=== PATIENT | male | born 1975 | race Caucasian/White ===

== ENCOUNTER 2016-09-24 21:27 | Observation (INO) | payer OTHER ==
[~2016-09-24] VITALS: Ht 170.2 cm; Wt 58.8 kg
[~2016-09-24 21:27] MED LIST: DICL75 PO
[2016-09-24 21:30] VITALS: BP 98/68; PULSE 84; RESP 16; TEMP 99.7; O2SAT 99
[2016-09-24] MEDS ORDERED: TRAM50TA PO (21:42)
--- NOTE | 2016-09-24 21:46 | PD ---
HPI Chief Complaint: Skin Problem Time Seen by Provider: 21:46 Travel History International Travel<30 days: No Contact w/Intl Traveler<30days: No Traveled to known affect area: No History of Present Illness HPI 41-year-old male presents to the ED for evaluation of 2 day history of left ankle pain and swelling. Gradual onset. Patient endorses increased pain with weightbearing, especially after periods of rest. He denies numbness, tingling, weakness, limitations to range of motion of the ankle. He denies known trauma, previous injury, fever or chills. 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 No treatment attempted at home. Patient states that he takes tramadol daily for chronic right shoulder pain. Denies chronic health problems, requests nonnarcotic pain medications. Endorses allergy to sulfa. PFSH Past Medical History Medical History: Denies Significant Hx Hx Anticoagulant Therapy: No Cardiovascular Problems: No Chemotherapy: No Cerebrovascular Accident: No Diabetes: No Diminished Hearing: No Respiratory: No Immunizations Current: Yes Tetanus Vaccination: > 5 Years Influenza Vaccination: No Past Surgical History Surgical History: No Previous Surgery Hysterectomy: No Social History Alcohol Use: No (6 pack/week) Tobacco Use: No (VAPOR CIGS ONLY) Substance Use: Yes (marijuana) Allergies-Medications (Allergen,Severity, Reaction): Coded Allergies: Sulfa (Verified Allergy, Severe, RASH, 09/24/16) Uncoded Allergies: NO NARCOTIC PER REQUEST (Allergy, Severe, PT IN [facility], 01/29/08) Reported Meds & Prescriptions Reported Meds & Active Scripts Active Reported Tramadol (Tramadol HCl) 50 Mg Tab 50 Mg PO Q8H PRN Review of Systems Except as stated in HPI: all other systems reviewed are Neg Physical Exam Narrative GENERAL: Well-nourished, well-developed white male in no acute distress. SKIN: Focused skin assessment warm/dry. There is warm, tender erythema of bilateral lower legs, left greater than right. No lymphatic streaking or popliteal LAD bilaterally. HEAD: Normocephalic. EYES: No scleral icterus. No injection or drainage. NECK: Supple, trachea midline. No JVD or lymphadenopathy. CARDIOVASCULAR: Regular rate and rhythm without murmurs, gallops, or rubs. RESPIRATORY: Breath sounds equal bilaterally. No accessory muscle use. GASTROINTESTINAL: Abdomen soft, non-tender, nondistended. MUSCULOSKELETAL: No cyanosis, or edema. 2+ DP pulse bilaterally. Patient retains full, active, painless range of motion of the ankles and toes bilaterally. Mild pitting edema of the medial malleolus of the left ankle. Homans sign negative bilaterally. Sensation intact to light touch distally. Cap refill less than 2 seconds. BACK: Nontender without obvious deformity. No CVA tenderness. Data Data Last Documented VS Vital Signs Date Time Temp Pulse Resp B/P Pulse Ox O2 Delivery O2 Flow Rate FiO2 09/24/16 21:30 99.7 84 16 98/68 99 Orders Ankle, Complete ([id number]) (09/24/16 21:54) Ankle, Complete ([id number]) (09/24/16 21:54) Ice/Cold Pack (09/24/16 21:54) ^ Insert Iv (09/24/16 21:54) Complete Blood Count With Diff (09/24/16 21:54) Comprehensive Metabolic Panel (09/24/16 21:54) C-Reactive Protein (Crp) (09/24/16 21:54) Westergren Sedimentation Rate (09/24/16 21:54) MDM Medical Decision Making Medical Screen Exam Complete: Yes Emergency Medical Condition: Yes Differential Diagnosis Rheumatoid arthritis versus osteoarthritis versus cellulitis versus other Narrative Course 41-year-old male presents to the ED for evaluation of 2 day history of left ankle pain and swelling. Gradual onset. Patient endorses increased pain with weightbearing, especially after periods of rest. He denies numbness, tingling, weakness, limitations to range of motion of the ankle. He denies known trauma, previous injury, fever or chills. 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 Patient denies IV drug use. Vitals reviewed. Patient has a low-grade fever on presentation. Physical exam reveals a nontoxic -appearing white male in no acute distress. There is warm, tender erythema of bilateral lower legs, left greater than right. There is no lymphatic streaking or popliteal LAD bilaterally. 2+ DP pulses bilaterally. Patient retains full, active, painless range of motion of the ankles and toes bilaterally. There is mild pitting edema in the medial malleolus of the left ankle. Homans sign negative bilaterally. Neurovascularly intact. X-rays of bilateral ankles, IV insertion, CBC, CMP, CRP, sedimentation rate ordered. Patient will be transferred referred to the medical pod. Please see Dr. Loera notes for disposition. Hue Hernandez Sep 24, 2016 21:46
--- NOTE | 2016-09-24 22:36 | RADHPO ---
EXAM DATE/TIME: 09/24/2016 22:16 [facility] COMPARISON: No previous studies available for comparison. INDICATIONS : Left medial ankle pain, redness, and swelling. No known injury. MEDICAL HISTORY : None. SURGICAL HISTORY : None. ENCOUNTER: Initial ACUITY: 2 days PAIN SCORE: 5/10 LOCATION: Left medial ankle FINDINGS: Three view exam was performed of the left ankle. The bony structures are in normal alignment. No ev idence of fracture, dislocation, or soft tissue swelling. The ankle mortise is intact. No radiopaqu e foreign bodies are seen. Bony mineralization is normal. CONCLUSION: No acute disease. Adam Leo MD on September 24, 2016 at 22:34 Board Certified Radiologist. This report was verified electronically.
[2016-09-24 22:37] LABS: AUTOMATED NEUTROPHIL # 2.1 TH/MM3 (1.8-7.7); BASOPHIL % 0.6 % (0.0-2.0); EOSINOPHIL % 0.4 % (0.0-4.0); HEMATOCRIT 33.6 % (39.0-51.0); HEMO FLAGS DIFF FINAL; LYMPH % 18.2 % (9.0-44.0); LYMPHOCYTE # 0.6 TH/MM3 (1.0-4.8); MEAN CELL VOLUME 79.7 FL (80.0-100.0); MEAN CORPUSCULAR HEMOGLOBIN 26.3 PG (27.0-34.0); MONO % 18.1 % (0.0-8.0); NEUT % 62.7 % (16.0-70.0); PLATELET COUNT 191 TH/MM3 (150-450); RED BLOOD COUNT 4.21 MIL/MM3 (4.50-5.90); RED CELL DISTRIBUTION WIDTH 13.3 % (11.6-17.2); WHITE BLOOD COUNT 3.3 TH/MM3 (4.0-11.0)
--- NOTE | 2016-09-24 22:37 | RADHPO ---
EXAM DATE/TIME: 09/24/2016 22:18 [facility] COMPARISON: No previous studies available for comparison. INDICATIONS : Right medial ankle redness. No known injury. MEDICAL HISTORY : None. SURGICAL HISTORY : None. ENCOUNTER: Initial ACUITY: 1 day PAIN SCORE: 3/10 LOCATION: Right medial ankle FINDINGS: Three view exam was performed of the right ankle. The bony structures are in normal alignment. No e vidence of fracture, dislocation, or soft tissue swelling. The ankle mortise is intact. No radiopaq ue foreign bodies are seen. Bony mineralization is normal. CONCLUSION: No acute disease. Adam Leo MD on September 24, 2016 at 22:35 Board Certified Radiologist. This report was verified electronically.
[2016-09-24 22:53] LABS: CHLORIDE 104 MEQ/L (98-107); POTASSIUM 3.4 MEQ/L (3.5-5.1); SODIUM (NA) 140 MEQ/L (136-145)
--- NOTE | 2016-09-24 22:53 | PD ---
Physical Exam Date Seen by Provider: Sep 24, 2016 Time Seen by Provider: 22:52 Narrative accepted in transfer of care GENERAL: SKIN: Warm and dry. HEAD: Normocephalic. EYES: No scleral icterus. No injection or drainage. NECK: Supple, trachea midline. No JVD or lymphadenopathy. CARDIOVASCULAR: Regular rate and rhythm without murmurs, gallops, or rubs. RESPIRATORY: Breath sounds equal bilaterally. No accessory muscle use. GASTROINTESTINAL: Abdomen soft, non-tender, nondistended. MUSCULOSKELETAL: No cyanosis, or edema. Bilateral lower extremities attention medial lower leg overlying area of medial malleolus left greater than right with area of erythema increased warmth tenderness to palpation nonfluctuant nontender rated able to demonstrate full range of motion of the ankles without eliciting pain dorsalis pedis pulse bilaterally 2+ to palpation capillary refill brisk and less than 2 seconds per digit no deformity no pallor no coolness no ascending erythema no groin lymphadenopathy to palpation. BACK: Nontender without obvious deformity. No CVA tenderness. Data Data Last Documented VS Vital Signs Date Time Temp Pulse Resp B/P Pulse Ox O2 Delivery O2 Flow Rate FiO2 09/25/16 00:30 64 16 115/75 99 Room Air 09/25/16 00:00 98.6 Orders Ankle, Complete (Xit2qsh) (09/24/16 21:54) Ankle, Complete ([id number]) (09/24/16 21:54) Ice/Cold Pack (09/24/16 21:54) ^ Insert Iv (09/24/16 21:54) Complete Blood Count With Diff (09/24/16 21:54) Comprehensive Metabolic Panel (09/24/16 21:54) C-Reactive Protein (Crp) (09/24/16 21:54) Westergren Sedimentation Rate (09/24/16 21:54) Ketorolac Inj (Toradol Inj) (09/24/16 23:30) Lactic Acid (09/25/16 00:12) Blood Culture (09/25/16 00:12) Drug Screen, Random Urine (09/25/16 00:12) Place In Observation (09/25/16 ) Vital Signs (Adult) Q4H (09/25/16 00:36) Activity Oob Ad Sophie (09/25/16 00:36) Diet Regular Basic (09/25/16 Breakfast) Sodium Chlor 0.9% 1000 Ml Inj (Ns 1000 M (09/25/16 00:36) Sodium Chloride 0.9% Flush (Ns Flush) (09/25/16 00:45) Sodium Chloride 0.9% Flush (Ns Flush) (09/25/16 09:00) Ondansetron Inj (Zofran Inj) (09/25/16 00:45) Bisacodyl Supp (Dulcolax Supp) (09/25/16 00:45) Comprehensive Metabolic Panel (09/26/16 06:00) Complete Blood Count With Diff (09/26/16 06:00) Acetaminophen (Tylenol) (09/25/16 00:45) Acetamin-Hydrocod 325-5 Mg (Julian 5-325 (09/25/16 00:45) Morphine Inj (Morphine Inj) (09/25/16 00:45) Clindamycin Inj (Cleocin Inj) (09/25/16 09:00) Admit Order (Ed Use Only) (09/25/16 ) ^ Saline Lock (09/25/16 00:41) Resp Oxygen Brendon C Titrat 1-4 L (09/25/16 ) ^ Notify Dr: Other (09/25/16 00:41) Sodium Chloride 0.9% Flush (Ns Flush) (09/25/16 09:00) Sodium Chloride 0.9% Flush (Ns Flush) (09/25/16 00:45) Clindamycin Inj (Cleocin Inj) (09/25/16 00:45) Labs Laboratory Tests Test 09/24/16 09/25/16 09/25/16 22:07 00:25 00:33 White Blood Count 3.3 TH/MM3 Red Blood Count 4.21 MIL/MM3 Hemoglobin 11.1 GM/DL Hematocrit 33.6 % Mean Corpuscular Volume 79.7 FL Mean Corpuscular Hemoglobin 26.3 PG Mean Corpuscular Hemoglobin 33.0 % Concent Red Cell Distribution Width 13.3 % Platelet Count 191 TH/MM3 Mean Platelet Volume 7.8 FL Neutrophils (%) (Auto) 62.7 % Lymphocytes (%) (Auto) 18.2 % Monocytes (%) (Auto) 18.1 % Eosinophils (%) (Auto) 0.4 % Basophils (%) (Auto) 0.6 % Neutrophils # (Auto) 2.1 TH/MM3 Lymphocytes # (Auto) 0.6 TH/MM3 Monocytes # (Auto) 0.6 TH/MM3 Eosinophils # (Auto) 0.0 TH/MM3 Basophils # (Auto) 0.0 TH/MM3 CBC Comment DIFF FINAL Differential Comment Erythrocyte Sedimentation Rate 1 mm/hr Sodium Level 140 MEQ/L Potassium Level 3.4 MEQ/L Chloride Level 104 MEQ/L Carbon Dioxide Level 28.2 MEQ/L Anion Gap 8 MEQ/L Blood Urea Nitrogen 12 MG/DL Creatinine 1.00 MG/DL Estimat Glomerular Filtration 82 ML/MIN Rate Random Glucose 112 MG/DL Calcium Level 8.4 MG/DL Total Bilirubin 0.8 MG/DL Aspartate Amino Transf 12 U/L (AST/SGOT) Alanine Aminotransferase 14 U/L (ALT/SGPT) Alkaline Phosphatase 100 U/L C-Reactive Protein 6.80 MG/DL Total Protein 6.1 GM/DL Albumin 3.3 GM/DL Urine Opiates Screen NEG Urine Barbiturates Screen NEG Urine Amphetamines Screen NEG Urine Benzodiazepines Screen NEG Urine Cocaine Screen NEG Urine Cannabinoids Screen NEG Lactic Acid Level 0.6 mmol/L MDM Medical Record Reviewed: Yes Supervised Visit with CHARITY: Yes (I, Dr. Salas, have reviewed the advance practice practitioner's documentation and am in agreement, met with the patient face to face, made the diagnosis, and the medical decision making was done by me. My assessment and findings: Cellulitis) Interpretation(s) C-RP: 6.80, elevated sed rate: 1, not elevated Last Impressions Ankle X-Ray 09/24/162153 Signed Impressions: Service Date/Time: Saturday, September 24, 2016 22:18 - CONCLUSION: No acute disease. Adam Leo MD Ankle X-Ray 09/24/162153 Signed Impressions: Service Date/Time: Saturday, September 24, 2016 22:16 - CONCLUSION: No acute disease. Adam Leo MD CBC & BMP Diagram 09/24/16 22:07 Vital Signs Date Time Temp Pulse Resp B/P Pulse Ox O2 Delivery O2 Flow Rate FiO2 09/25/16 00:30 64 16 115/75 99 Room Air 09/25/16 00:00 98.6 09/24/16 23:05 65 16 09/24/16 23:00 65 16 109/75 99 Room Air 09/24/16 21:30 99.7 84 16 98/68 99 Differential Diagnosis Cellulitis, migratory arthritis, gouty arthritis, rheumatoid arthritis, contact dermatitis; no reproducible joint pain with range of motion unlikely septic arthritis Narrative Course IV access obtained specimens collected and sent for resulting Imaging studies revealed no acute abnormality Patient remains hypotensive but states that he is chronically normal low normal to hypotensive with his blood pressures Patient administered IV antibiotic; uric acid lactic acid pending blood cultures collected and antibiotics administered case discussed with information systems planner EDDY JIMENEZ for obs admission Physician Communication Physician Communication discussed with EDDY JIMENEZ Diagnosis Primary Impression: Cellulitis of left ankle Admitting Information Admitting Physician Requests: Observation Eleanor Salas MD Sep 24, 2016 22:53
[2016-09-24 22:57] LABS: ANION GAP 8 MEQ/L (5-15); BICARBONATE 28.2 MEQ/L (21.0-32.0); BLOOD UREA NITROGEN 12 MG/DL (7-18)
[2016-09-24 23:00] VITALS: BP 109/75; PULSE 65; RESP 16; O2SAT 99
[2016-09-24 23:00] LABS: ALT (GPT) 14 U/L (12-78); AST (GOT) 12 U/L (15-37); GLOMERULAR FILTRATION RATE 82 ML/MIN (>89)
[2016-09-24 23:01] LABS: TOTAL BILIRUBIN ADULT 0.8 MG/DL (0.2-1.0)
[2016-09-24 23:03] LABS: ALKALINE PHOSPHATASE 100 U/L (45-117)
[2016-09-24] MEDS ORDERED: KETOROLAC TROMETHAMINE 30 MG/ML (IVP) VIAL IV PUSH ONE (23:30)
[2016-09-25] VITALS (12 sets, daily range): BP systolic 95–121; BP diastolic 74–88; PULSE 58–96; RESP 16–20; TEMP 95.8–98.8; O2SAT 96–100
[2016-09-25] MEDS ORDERED: CLINDAMYCIN INJ 900 MG in SODIUM CHLORIDE 0.9% INJ 100 ML IV ONE (00:45)
[2016-09-25] MEDS ORDERED: SODIUM CHLORIDE 0.9% FLUSH 10 ML FLUSH IV FLUSH PRN (00:45)
[2016-09-25] MEDS ORDERED: MORPHINE SULFATE 4 MG/ML INJ IV PRN (00:45)
[2016-09-25] MEDS ORDERED: ONDANSETRON HCL 4 MG/2 ML VIAL IVP PRN (00:45)
[2016-09-25] MEDS ORDERED: ACETAMINOPHEN 325 MG TAB PO PRN (00:45)
[2016-09-25] MEDS ORDERED: BISACODYL 10 MG SUPP RECTAL PRN (00:45)
[2016-09-25] MEDS ORDERED: SODIUM CHLORIDE 0.9% FLUSH 10 ML FLUSH IVF PRN (00:45)
[2016-09-25 01:00] LABS: AMPHETAMINE, URINE NEG (NEG); BARBITURATES, URINE NEG (NEG)
[2016-09-25 01:06] LABS: COCAINE, URINE NEG (NEG)
[2016-09-25] MEDS: SODIUM CHLOR 0.9% 1000 ML INJ 1,000 ML IV SCH ×3 (01:16→22:06)
[2016-09-25] MEDS ORDERED: DOXYCYCLINE HYCLATE 100 MG CAP PO ONE (02:00)
[2016-09-25] MEDS: SODIUM CHLORIDE 0.9% FLUSH 10 ML FLUSH IV FLUSH SCH ×2 (07:57→21:00)
[2016-09-25] MEDS ORDERED: SODIUM CHLORIDE 0.9% FLUSH 10 ML FLUSH IV FLUSH SCH (09:00)
[2016-09-25] MEDS: CLINDAMYCIN INJ 900 MG in SODIUM CHLORIDE 0.9% INJ 100 ML IV SCH ×2 (09:04→17:48)
[2016-09-25] MEDS: ACETAMINOPHEN/HYDROcodone 325 MG/5 MG TAB PO PRN ×4 (09:05→22:04)
--- NOTE | 2016-09-25 13:05 | HHI.HP ---
[facility] [place] [facility] Primary [facility] Physician Abigail Gutiérrez MD Admission Diagnosis L ankle cellulitis Diagnoses: (1) Cellulitis of left ankle Travel History International Travel<30 Days: No Contact w/Intl Traveler <30 Da: No Traveled to Known Affected Are: No History of Present Illness 41-year-old male with past medical history of psoriasis, previous opiate and alcohol abuse quit in 2006 who presents to the ER with left ankle pain swelling and redness beginning 4 days ago. 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 4 days ago he noticed that they were red splotches on his left ankle. The patient noted that he has had this issue before along with swelling but has resolved on its own. He went to bed and the next morning he woke up the ankle was more swollen and red. No fevers or chills. The ankle continued to worsen and so he presented to the ER yesterday. The ER physician noted that both ankles appeared swollen and warm to touch. Today the patient states that the swelling and redness have greatly improved. He denies previous history of injury to the ankle. No hardware. Review of Systems Except as stated in HPI: all other systems reviewed are Neg Past Family Social History Past Medical History Right shoulder arthritis Psoriasis Possible previous history of lower extremity cellulitis Bronchitis Lactose intolerance as - fed goat milk Past Surgical History None Reported Medications Allergies Coded Allergies Type Severity Reaction Last Updated Verified Sulfa Allergy Severe RASH 09/24/16 Yes Uncoded Allergies Type Severity Reaction Last Updated Verified NO NARCOTIC PER REQUEST Allergy Severe PT IN RECOVERY 01/29/08 Active Scripts Medications Dose Route/Sig Days Date Category Tramadol (Tramadol HCl) 50 Mg Tab 50 Mg PO Q8H PRN 09/24/16 Reported Allergies: Coded Allergies: Sulfa (Verified Allergy, Severe, RASH, 09/24/16) Uncoded Allergies: NO NARCOTIC PER REQUEST (Allergy, Severe, PT IN RECOVERY, 01/29/08) Family History Reviewed and noncontributory Social History 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 Quit tobacco 7 years ago, he does have vape 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 has been abstinent Physical Exam Vital Signs Vital Signs Date Time Temp Pulse Resp B/P Pulse Ox O2 Delivery O2 Flow Rate FiO2 09/25/16 09:39 99 21 09/25/16 08:00 97.2 67 18 116/83 100 09/25/16 04:00 95.8 69 16 116/74 99 09/25/16 02:35 98.8 70 18 120/79 96 09/25/16 02:10 100 21 09/25/16 02:05 68 16 119/76 100 Room Air 09/25/16 01:15 58 16 108/75 98 Room Air 09/25/16 00:49 16 09/25/16 00:30 64 16 115/75 99 Room Air 09/25/16 00:00 98.6 09/24/16 23:05 65 16 09/24/16 23:00 65 16 109/75 99 Room Air 09/24/16 21:30 99.7 84 16 98/68 99 Physical Exam GENERAL: Well-nourished, well-developed pleasant lean male patient. SKIN: Warm and dry. HEAD: Normocephalic. EYES: No scleral icterus. No injection or drainage. NECK: Supple, trachea midline. No JVD or lymphadenopathy. CARDIOVASCULAR: Regular rate and rhythm without murmurs, gallops, or rubs. RESPIRATORY: Breath sounds equal and clear to auscultation bilaterally. No accessory muscle use. GASTROINTESTINAL: Abdomen soft, non-tender, nondistended. EXTREMITIES: Trace edema of the left ankle with medial erythema and warmth no streaking. Normal range of motion. Right ankle no edema or erythema. NEUROLOGICAL: Awake, alert, and oriented x 3. Non-focal. Laboratory Laboratory Tests Test 09/24/16 09/25/16 09/25/16 22:07 00:25 00:33 White Blood Count 3.3 Red Blood Count 4.21 Hemoglobin 11.1 Hematocrit 33.6 Mean Corpuscular Volume 79.7 Mean Corpuscular Hemoglobin 26.3 Mean Corpuscular Hemoglobin 33.0 Concent Red Cell Distribution Width 13.3 Platelet Count 191 Mean Platelet Volume 7.8 Neutrophils (%) (Auto) 62.7 Lymphocytes (%) (Auto) 18.2 Monocytes (%) (Auto) 18.1 Eosinophils (%) (Auto) 0.4 Basophils (%) (Auto) 0.6 Neutrophils # (Auto) 2.1 Lymphocytes # (Auto) 0.6 Monocytes # (Auto) 0.6 Eosinophils # (Auto) 0.0 Basophils # (Auto) 0.0 CBC Comment DIFF FINAL Differential Comment Erythrocyte Sedimentation Rate 1 Sodium Level 140 Potassium Level 3.4 Chloride Level 104 Carbon Dioxide Level 28.2 Anion Gap 8 Blood Urea Nitrogen 12 Creatinine 1.00 Estimat Glomerular Filtration 82 Rate Random Glucose 112 Calcium Level 8.4 Total Bilirubin 0.8 Aspartate Amino Transf 12 (AST/SGOT) Alanine Aminotransferase 14 (ALT/SGPT) Alkaline Phosphatase 100 C-Reactive Protein 6.80 Total Protein 6.1 Albumin 3.3 Urine Opiates Screen NEG Urine Barbiturates Screen NEG Urine Amphetamines Screen NEG Urine Benzodiazepines Screen NEG Urine Cocaine Screen NEG Urine Cannabinoids Screen NEG Lactic Acid Level 0.6 Date/Time Procedure Status Source Growth 09/25/16 01:05 Aerobic Blood Culture Received Blood Peripheral Pending 09/25/16 01:05 Anaerobic Blood Culture Received Blood Peripheral Pending Result Diagram: 09/24/16220609/24/162206 Imaging Last Impressions Ankle X-Ray 09/24/162153 Signed Impressions: Service Date/Time: Saturday, September 24, 2016 22:18 - CONCLUSION: No acute disease. Adam Leo MD Assessment and Plan Assessment and Plan -Left ankle cellulitis and swelling, clinically improved today. Continue vancomycin IV 1 more day and possibly switch to by mouth tomorrow. Sedimentation rate not elevated, no concerns for underlying osteomyelitis. Patient instructed to elevate the leg. -Psoriasis, not currently active. -Right shoulder arthritis. Tylenol as needed for pain. -DVT prophylaxis with ambulation. Elle Farias MD Sep 25, 2016 13:05
[2016-09-26] VITALS: BP 112/78; PULSE 62; RESP 16; TEMP 97.4; O2SAT 98
[2016-09-26] MEDS: CLINDAMYCIN INJ 900 MG in SODIUM CHLORIDE 0.9% INJ 100 ML IV SCH ×3 (01:04→18:22)
[2016-09-26] MEDS: ACETAMINOPHEN/HYDROcodone 325 MG/5 MG TAB PO PRN ×5 (06:51→23:51)
[2016-09-26 07:38] LABS: CHLORIDE 110 MEQ/L (98-107); POTASSIUM 3.9 MEQ/L (3.5-5.1); SODIUM (NA) 145 MEQ/L (136-145)
[2016-09-26 07:43] LABS: ANION GAP 9 MEQ/L (5-15); AUTOMATED NEUTROPHIL # 1.9 TH/MM3 (1.8-7.7); BASOPHIL % 0.4 % (0.0-2.0); BICARBONATE 26.3 MEQ/L (21.0-32.0); BLOOD UREA NITROGEN 7 MG/DL (7-18); HEMATOCRIT 35.2 % (39.0-51.0); HEMO FLAGS DIFF FINAL; LYMPH % 14.5 % (9.0-44.0); LYMPHOCYTE # 0.4 TH/MM3 (1.0-4.8); MEAN CORPUSCULAR HEMOGLOBIN 26.5 PG (27.0-34.0); MEAN CORPUSCULAR HGB CONC 32.7 % (32.0-36.0); MONO % 16.1 % (0.0-8.0); PLATELET COUNT 160 TH/MM3 (150-450); RED BLOOD COUNT 4.34 MIL/MM3 (4.50-5.90); RED CELL DISTRIBUTION WIDTH 13.9 % (11.6-17.2); WHITE BLOOD COUNT 2.7 TH/MM3 (4.0-11.0)
[2016-09-26 07:46] LABS: ALT (GPT) 12 U/L (12-78); AST (GOT) 14 U/L (15-37); GLOMERULAR FILTRATION RATE 105 ML/MIN (>89)
[2016-09-26 07:47] LABS: TOTAL BILIRUBIN ADULT 0.6 MG/DL (0.2-1.0)
[2016-09-26 07:49] LABS: ALKALINE PHOSPHATASE 93 U/L (45-117)
[2016-09-26 08:00] VITALS: BP 103/67; PULSE 80; RESP 18; TEMP 99.1; O2SAT 98
[2016-09-26] MEDS: SODIUM CHLORIDE 0.9% FLUSH 10 ML FLUSH IV FLUSH SCH ×2 (08:37→19:48)
[2016-09-26] MEDS: SODIUM CHLOR 0.9% 1000 ML INJ 1,000 ML IV SCH ×3 (08:51→19:51)
[2016-09-26 12:00] VITALS: BP 106/79; PULSE 65; RESP 17; TEMP 97.9; O2SAT 100
--- NOTE | 2016-09-26 12:43 | HHI.PR ---
Subjective Remarks Patient states that the left ankle erythema has only improved marginally today and that he still having significant pain at the area of erythema which is exacerbated by movement and bearing weight. No fevers or chills. Objective Vitals Vital Signs Date Time Temp Pulse Resp B/P Pulse Ox O2 Delivery O2 Flow Rate FiO2 09/26/16 12:00 97.9 65 17 106/79 100 09/26/16 08:00 99.1 80 18 103/67 98 09/26/16 00:00 97.4 62 16 112/78 98 09/25/16 20:00 96.0 61 20 95/88 99 09/25/16 16:00 97.7 72 18 108/79 99 I/O 09/25/16 09/25/16 09/25/16 09/26/16 09/26/16 09/26/16 07:00 15:00 23:00 07:00 15:00 23:00 Intake Total 200 ml 1200 ml 200 ml Balance 200 ml 1200 ml 200 ml Intake Oral 1200 ml 200 ml IV Total 200 ml # Voids 3 1 # Bowel Movements 0 0 Result Diagram: 09/26/16 0630 09/26/16 0630 Objective Remarks GENERAL: Well-nourished, well-developed pleasant lean male patient. SKIN: Warm and dry. HEAD: Normocephalic. EYES: No scleral icterus. No injection or drainage. NECK: Supple, trachea midline. No JVD or lymphadenopathy. CARDIOVASCULAR: Regular rate and rhythm without murmurs, gallops, or rubs. RESPIRATORY: Breath sounds equal and clear to auscultation bilaterally. No accessory muscle use. GASTROINTESTINAL: Abdomen soft, non-tender, nondistended. EXTREMITIES: Trace edema of the left ankle with medial erythema and warmth no streaking appears only mildly improved from yesterday. Normal range of motion. Right ankle no edema or erythema. NEUROLOGICAL: Awake, alert, and oriented x 3. Non-focal. A/P Problem List: (1) Cellulitis of left ankle ICD Code: L03.116 Status: Acute (2) Psoriasis ICD Code: L40.9 Status: Acute (3) Leukopenia ICD Code: D72.819 Status: Acute Assessment and Plan -Left ankle cellulitis and swelling, although marginally improved today. The patient did wait about 5 days prior to coming to the hospital and is relatively immunosuppressed with the leukopenia. I will check a CT with contrast of the ankle to ensure no underlying bone infection or abscess. Continue vancomycin IV until further clinical improvement. Sedimentation rate not elevated. Patient instructed to elevate the leg. Lortab as needed for pain. Increase to 7.5 every 4 hours. -Psoriasis, not currently active. -Leukopenia worsened today. Likely related to infection. Repeat CBC in the morning. -Right shoulder arthritis. Tylenol as needed for pain. -DVT prophylaxis with ambulation. Elle Farias MD Sep 26, 2016 12:43
[2016-09-26] MEDS ORDERED: PILL SPLITTER OTHER PRN (13:15)
[2016-09-26 16:00] VITALS: BP 112/72; PULSE 68; RESP 17; TEMP 97.7; O2SAT 99
--- NOTE | 2016-09-26 17:26 | RADHPO ---
EXAM DATE/TIME: 09/26/2016 15:41 [facility] COMPARISON: No previous studies available for comparison. INDICATIONS : Left ankle cellulitis IV CONTRAST: 72 cc Omnipaque 350 (iohexol) IV RADIATION DOSE: 6.10 CTDIvol (mGy) MEDICAL HISTORY : None SURGICAL HISTORY : None. ENCOUNTER: Initial ACUITY: 1 day PAIN SCALE: 3/10 LOCATION: Left ankle TECHNIQUE: Volumetric scanning of the ankle was performed. Using automated exposure control and adjustment of t he mA and/or kV according to patient size, radiation dose was kept as low as reasonably achievable to obtain optimal diagnostic quality images. FINDINGS: There is soft tissue swelling and edema in the subcutaneous tissues predominantly of the medial ankle and medial foot characteristic of a mild cellulitis. No discrete abscess. No acute bony abnormalitie s. No fracture or subluxation. CONCLUSION: 1. Cellulitis around the left ankle and posterior foot predominantly medially. No discrete abscess. N o bony abnormality. Dimas Florez MD on September 26, 2016 at 17:21 Board Certified Radiologist. This report was verified electronically.
[2016-09-26] MEDS ORDERED: IOHEXOL 350 MG/ML 10 ML VIAL (for RAD DIAG) IV ONE (18:36)
[2016-09-26 20:00] VITALS: BP 117/80; PULSE 70; RESP 20; TEMP 97.6; O2SAT 100
[2016-09-27] VITALS: BP 130/84; PULSE 71; RESP 20; TEMP 98.9; O2SAT 99
[2016-09-27] MEDS: CLINDAMYCIN INJ 900 MG in SODIUM CHLORIDE 0.9% INJ 100 ML IV SCH ×2 (00:38→08:27)
[2016-09-27 04:00] VITALS: BP 115/67; PULSE 57; RESP 20; TEMP 98.5; O2SAT 99
[2016-09-27 07:22] LABS: AUTOMATED NEUTROPHIL # 1.9 TH/MM3 (1.8-7.7); BASOPHIL % 0.4 % (0.0-2.0); EOSINOPHIL % 0.1 % (0.0-4.0); HEMATOCRIT 34.2 % (39.0-51.0); HEMO FLAGS DIFF FINAL; LYMPH % 19.2 % (9.0-44.0); LYMPHOCYTE # 0.5 TH/MM3 (1.0-4.8); MEAN CELL VOLUME 82.5 FL (80.0-100.0); MEAN CORPUSCULAR HEMOGLOBIN 26.8 PG (27.0-34.0); MEAN CORPUSCULAR HGB CONC 32.5 % (32.0-36.0); MONO % 13.9 % (0.0-8.0); NEUT % 66.4 % (16.0-70.0); PLATELET COUNT 159 TH/MM3 (150-450); RED BLOOD COUNT 4.14 MIL/MM3 (4.50-5.90); RED CELL DISTRIBUTION WIDTH 14.6 % (11.6-17.2); WHITE BLOOD COUNT 2.9 TH/MM3 (4.0-11.0)
[2016-09-27 07:29] LABS: POTASSIUM 3.7 MEQ/L (3.5-5.1)
[2016-09-27 08:00] VITALS: BP 106/79; PULSE 59; RESP 18; TEMP 97.1; O2SAT 100
[2016-09-27] MEDS: SODIUM CHLORIDE 0.9% FLUSH 10 ML FLUSH IV FLUSH SCH (08:27)
[2016-09-27] MEDS: ACETAMINOPHEN/HYDROcodone 325 MG/5 MG TAB PO PRN ×2 (08:27→12:33)
[2016-09-27] MEDS: SODIUM CHLOR 0.9% 1000 ML INJ 1,000 ML IV SCH (08:27)
--- NOTE | 2016-09-27 11:56 | HHI.DS ---
Discharge Summary Admission Date Sep 25, 2016 at 00:44 Discharge Date: Sep 27, 2016 Admitting Diagnosis L ankle cellulitis (1) Cellulitis of left ankle ICD Code: L03.116 (2) Psoriasis ICD Code: L40.9 (3) Leukopenia ICD Code: D72.819 Procedures None Brief History - From Admission 41-year-old male with past medical history of psoriasis, previous opiate and alcohol abuse quit in 2006 who presents to the ER with left ankle pain swelling and redness beginning 4 days ago. 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 4 days ago he noticed that they were red splotches on his left ankle. The patient noted that he has had this issue before along with swelling but has resolved on its own. He went to bed and the next morning he woke up the ankle was more swollen and red. No fevers or chills. The ankle continued to worsen and so he presented to the ER yesterday. The ER physician noted that both ankles appeared swollen and warm to touch. Today the patient states that the swelling and redness have greatly improved. He denies previous history of injury to the ankle. No hardware. CBC/BMP: 09/27/16 0520 09/27/16 0520 Significant Findings Laboratory Tests Test 09/24/16 09/26/16 09/27/16 22:07 06:30 05:20 White Blood Count 3.3 TH/MM3 2.7 TH/MM3 2.9 TH/MM3 (4.0-11.0) (4.0-11.0) (4.0-11.0) Red Blood Count 4.21 MIL/MM3 4.34 MIL/MM3 4.14 MIL/MM3 (4.50-5.90) (4.50-5.90) (4.50-5.90) Hemoglobin 11.1 GM/DL 11.5 GM/DL 11.1 GM/DL (13.0-17.0) (13.0-17.0) (13.0-17.0) Hematocrit 33.6 % 35.2 % 34.2 % (39.0-51.0) (39.0-51.0) (39.0-51.0) Mean Corpuscular Volume 79.7 FL (80.0-100.0) Mean Corpuscular Hemoglobin 26.3 PG 26.5 PG 26.8 PG (27.0-34.0) (27.0-34.0) (27.0-34.0) Monocytes (%) (Auto) 18.1 % 16.1 % 13.9 % (0.0-8.0) (0.0-8.0) (0.0-8.0) Lymphocytes # (Auto) 0.6 TH/MM3 0.4 TH/MM3 0.5 TH/MM3 (1.0-4.8) (1.0-4.8) (1.0-4.8) Potassium Level 3.4 MEQ/L (3.5-5.1) Estimat Glomerular Filtration 82 ML/MIN (>89) Rate Random Glucose 112 MG/DL (74-106) Calcium Level 8.4 MG/DL 8.0 MG/DL 8.0 MG/DL (8.5-10.1) (8.5-10.1) (8.5-10.1) Aspartate Amino Transf 12 U/L (15-37) 14 U/L (15-37) (AST/SGOT) C-Reactive Protein 6.80 MG/DL (0.00-0.30) Total Protein 6.1 GM/DL 5.4 GM/DL (6.4-8.2) (6.4-8.2) Albumin 3.3 GM/DL 2.9 GM/DL (3.4-5.0) (3.4-5.0) Chloride Level 110 MEQ/L 111 MEQ/L (98-107) (98-107) Sodium Level 146 MEQ/L (136-145) Blood Urea Nitrogen 6 MG/DL (7-18) Imaging Last Impressions Lower Extremity CT 09/26/16 0000 Signed Impressions: Service Date/Time: Monday, September 26, 2016 15:41 - CONCLUSION: 1. Cellulitis around the left ankle and posterior foot predominantly medially. No discrete abscess. No bony abnormality. Dimas Florez MD Ankle X-Ray 09/24/16 [id number] Signed Impressions: Service Date/Time: Saturday, September 24, 2016 22:18 - CONCLUSION: No acute disease. Adam Leo MD PE at Discharge GENERAL: Well-nourished, well-developed pleasant lean male patient. SKIN: Warm and dry. HEAD: Normocephalic. EYES: No scleral icterus. No injection or drainage. NECK: Supple, trachea midline. No JVD or lymphadenopathy. CARDIOVASCULAR: Regular rate and rhythm without murmurs, gallops, or rubs. RESPIRATORY: Breath sounds equal and clear to auscultation bilaterally. No accessory muscle use. GASTROINTESTINAL: Abdomen soft, non-tender, nondistended. EXTREMITIES: Trace residual erythema mainly centered around the medial malleolus of the left ankle, trace edema of the ankle overall much improved. Normal range of motion. NEUROLOGICAL: Awake, alert, and oriented x 3. Non-focal. Hospital Course The patient was treated with vancomycin IV. The ankle improved. CT scan of the left ankle was negative for any osteomyelitis. He will be transitioned to Keflex and doxycycline today. He is instructed to follow-up with his primary care physician which she is already made an appointment on Tuesday. Return to ER for any fever or worsening redness. Pt Condition on Discharge: Stable Discharge Disposition: Discharge Home Discharge Time: <= 30 minutes Discharge Instructions DIET: Follow Instructions for: As Tolerated, No Restrictions New Medications: Cephalexin (Cephalexin) 500 Mg Tab 500 MG PO Q8H Infection #21 Ref 0 TAB Doxycycline Hyclate (Doxycycline Hyclate) 100 Mg Cap 100 MG PO BID Infection #14 Ref 0 CAP Continued Medications: Tramadol (Tramadol) 50 Mg Tab 50 MG PO Q8H PRN PAIN Ref 0 TAB Elle Farias MD Sep 27, 2016 11:56
[2016-09-27] MEDS ORDERED: CEPH500T PO (12:04)
[2016-09-27] MEDS ORDERED: BACT800T5 PO (12:04)
[2016-09-27] MEDS ORDERED: DOXY100C PO (13:28)
== END 2016-09-27 12:46 | disposition home or self-care (01) ==
LOC: PHEFT 21:27 → PHEDA 09-25 00:44 → PH3A 09-25 02:15
PROVIDERS: ADMIT Family Medicine; ATTEND Family Medicine
DX: L03.116 Cellulitis of left lower limb (principal); G89.29 Other chronic pain; M19.011 Primary osteoarthritis, right shoulder; L40.9 Psoriasis, unspecified; D72.819 Decreased white blood cell count, unspecified; Z88.2 Allergy status to sulfonamides; Z87.891 Personal history of nicotine dependence
CPT/HCPCS: 73610; 73701; 80048; 80053; 80307; 83605; 85025; 85652; 86140; 87040; 96374; 99284; G0378; J1885; J2270; J7030; Q9967

== ENCOUNTER 2016-10-23 22:45 | Emergency (ER) | payer OTHER ==
[~2016-10-23] VITALS: Ht 170.2 cm; Wt 57.0 kg
[2016-10-23 22:45] VITALS: BP 105/80; PULSE 102; RESP 18; TEMP 99.6; O2SAT 95
[~2016-10-23 22:45] MED LIST changes: +CEPH500T PO; -DICL75 PO; +DOXY100C PO; +TRAM50TA PO
[2016-10-23] MEDS ORDERED: DOXY100T PO (23:08)
[2016-10-23] MEDS ORDERED: CEPH500T PO (23:08)
--- NOTE | 2016-10-23 23:09 | PD ---
HPI Chief Complaint: Skin Problem Time Seen by Provider: 22:59 Travel History International Travel<30 days: No Contact w/Intl Traveler<30days: No Traveled to known affect area: No History of Present Illness HPI The patient is a 41-year-old male with a history of cellulitis to both lower legs who complains of some redness and swelling starting around both ankles since yesterday. When he was admitted for cellulitis one month ago, he had edema and swelling over the entire lower leg. He wanted to catch it early. He works on his feet all day. He is allergic to sulfa. PFSH Past Medical History Hx Anticoagulant Therapy: No Cardiovascular Problems: No Chemotherapy: No Cerebrovascular Accident: No Diabetes: No Diminished Hearing: No Respiratory: No Immunizations Current: Yes Past Surgical History Hysterectomy: No Social History Alcohol Use: No (6 pack/week) Tobacco Use: No (VAPOR CIGS ONLY) Substance Use: Yes (marijuana) Allergies-Medications (Allergen,Severity, Reaction): Coded Allergies: Sulfa (Verified Allergy, Severe, RASH, 10/23/16) Uncoded Allergies: NO NARCOTIC PER REQUEST (Allergy, Severe, PT IN [facility], 01/29/08) Reported Meds & Prescriptions Reported Meds & Active Scripts Active Doxycycline Hyclate 100 Mg Cap 100 Mg PO BID Cephalexin 500 Mg Tab 500 Mg PO Q8H Reported Tramadol (Tramadol HCl) 50 Mg Tab 50 Mg PO Q8H PRN Review of Systems Except as stated in HPI: all other systems reviewed are Neg Physical Exam Narrative GENERAL: Well-nourished, well-developed patient in minimal apparent distress with his bilateral ankle redness. SKIN: Focused skin assessment warm/dry. HEAD: Normocephalic. There is a patch of redness around both medial malleoli that is about 10 x 3 cm. This looks like early cellulitis. No abscess is seen and no pustules are noted. No drainage is noted. EYES: No scleral icterus. No injection or drainage. NECK: Supple, trachea midline. No JVD or lymphadenopathy. CARDIOVASCULAR: Regular rate and rhythm without murmurs, gallops, or rubs. RESPIRATORY: Breath sounds equal bilaterally. No accessory muscle use. GASTROINTESTINAL: Abdomen soft, non-tender, nondistended. MUSCULOSKELETAL: No cyanosis, or edema. BACK: Nontender without obvious deformity. No CVA tenderness. Data Data Last Documented VS Vital Signs Date Time Temp Pulse Resp B/P Pulse Ox O2 Delivery O2 Flow Rate FiO2 10/23/16 22:45 99.6 102 18 105/80 95 MDM Medical Decision Making Medical Screen Exam Complete: Yes Emergency Medical Condition: Yes Medical Record Reviewed: Yes Differential Diagnosis Cellulitis legs, abscess legs, allergic reaction, Narrative Course The patient has cellulitis around both ankles. He can be treated as an outpatient for now, we will give him prescriptions for Keflex and doxycycline. He will get the first dose here in emergency department. He needs to elevate both of his ankles above his heart. He will be given a 3 day work excuse. He should follow-up with his primary care physician next week. He will need to return to emergency department if he gets worse. Diagnosis Primary Impression: Ankle cellulitis Additional Instructions: As we discussed, elevate your legs above your heart. Return to emergency department if worse. Follow-up with her primary care physician next week. Med/Other Pt SpecificInfo: Prescription(s) given Scripts Doxycycline Hyclate 100 Mg [id number] Mg PO BID 10 Days Prov:Robert Broussard MD 10/23/16 Cephalexin 500 Mg [id number] Mg PO Q8H 10 Days Ref 0 Prov:Robert Broussard MD 10/23/16 Disposition: 01 DISCHARGE HOME Condition: Stable Robert Broussard MD Oct 23, 2016 23:08
[2016-10-23] MEDS ORDERED: CEPHALEXIN MONOHYDRATE 500 MG CAP PO ONE (23:15)
[2016-10-23] MEDS ORDERED: DOXYCYCLINE HYCLATE 100 MG CAP PO ONE (23:15)
[2016-10-23 23:17] VITALS: BP 110/80; TEMP 99.5
== END 2016-10-23 23:27 | disposition home or self-care (01) ==
LOC: PHED 22:45
DX: L03.116 Cellulitis of left lower limb (principal); L03.115 Cellulitis of right lower limb
CPT/HCPCS: 99282